=== PATIENT | male | born 2005 | race Caucasian/White ===

== ENCOUNTER 2024-10-27 11:50 | Emergency (ER) | payer OTHER ==
[~2024-10-27] VITALS: Ht 172.7 cm; Wt 70.9 kg
[2024-10-27 16:41] VITALS: BP 125/72; TEMP 97.1; O2SAT 99
== END 2024-10-27 16:46 | disposition home or self-care (01) ==
LOC: M ED 11:50
DX: S62.346A Nondisplaced fracture of base of fifth metacarpal bone, right hand, initial encounter for closed fracture (principal); W22.09XA Striking against other stationary object, initial encounter; Y92.009 Unspecified place in unspecified non-institutional (private) residence as the place of occurrence of the external cause; Y93.89 Activity, other specified; Y99.9 Unspecified external cause status